=== PATIENT | female | born 1990 | race Caucasian/White ===

== ENCOUNTER → 2017-01-21 | Outpatient (CLI) | payer OTHER ==
[~2017-01-21] MED LIST: PRENTAB26 PO; SPIR50TA2 PO; yaz
[2017-01-21 12:09] LABS: BASO % 0.1 %; BASO ABS # 0.01 K/uL (0-0.2); COMPLETE YES; EOS % 1.9 %; HEMATOCRIT 38.8 % (37-47); IG% 0.3 %; LYMPH % 18.2 %; LYMPH ABS # 1.27 K/uL (1.2-3.4); MEAN CELL VOLUME 87.4 fL (80-100); MEAN CORPUSCULAR HEMOGLOBIN 29.3 pg (25-34); MEAN CORPUSCULAR HGB CONC 33.5 g/dl (32-36); MEAN PLATELET VOLUME 9.8 fL (7.4-10.4); NEUT % 75.5 %; PLATELET COUNT 190 K/uL (130-400); RED BLOOD COUNT 4.44 M/uL (4.2-5.4); WHITE BLOOD COUNT 6.97 K/uL (4.8-10.8)
[2017-01-21 14:12] LABS: URINE APPEARANCE CLEAR (CLEAR); URINE BILIRUBIN NEG (NEG); URINE COLOR YELLOW; URINE NITRITE NEG (NEG); URINE PH 6.5 (4.5-7.5); URINE SPECIFIC GRAVITY 1.013 (1.000-1.030); UROBILINOGEN NEG (NEG)
[2017-01-21 14:13] LABS: MANUAL MICROSCOPIC REQUIRED? NO; REVIEW REQ? NO
[2017-01-24 01:11] LABS: CHLAMYDIA TRACH RNA*** NOT DETECTED (NOT DETECTED); GC (NEIS GONORRHOEAE)RNA** NOT DETECTED (NOT DETECTED)
== END | disposition home or self-care (01) ==
LOC: C.LAB1850 11:21
PROVIDERS: ATTEND Obstetrics & Gynecology
DX: Z34.00 Encounter for supervision of normal first pregnancy, unspecified trimester (principal)

== ENCOUNTER → 2017-01-21 | Outpatient (CLI) | payer OTHER | END | disposition home or self-care (01) | LOC: C.PAPS 13:46 | PROVIDERS: ATTEND Obstetrics & Gynecology | DX: Z34.00 Encounter for supervision of normal first pregnancy, unspecified trimester (principal) ==

== ENCOUNTER → 2017-02-11 | Outpatient (CLI) | payer OTHER ==
[2017-02-11 18:16] LABS: GTGD 50 Grams
[2017-02-13 14:55] LABS: AFP CONCENTRATION 42.2 NG/ML; AFP MULTIPLE OF MEDIAN 0.84; AFPTS GESTATIONAL AGE 17.6 WEEKS; AFPTS INSULIN DEP DIABETIC? NO; AFPTS MATERNAL WT 110 LBS; ALPHA-FETOPROTEIN RACE CAUCASIAN=W; HISTORY OF NTD NO; REPEAT SAMPLE? NO
== END | disposition home or self-care (01) ==
LOC: C.LAB1850 12:47
PROVIDERS: ATTEND Obstetrics & Gynecology
DX: Z34.00 Encounter for supervision of normal first pregnancy, unspecified trimester (principal)

== ENCOUNTER → 2017-04-29 | Outpatient (CLI) | payer OTHER ==
[~2017-04-29] MED LIST changes: -PRENTAB26 PO
[2017-04-29 12:18] LABS: HEMATOCRIT 34.7 % (37-47)
[2017-04-29 12:30] LABS: GTGD 50 Grams
[2017-04-29 15:02] LABS: URINE APPEARANCE CLEAR (CLEAR); URINE BILIRUBIN NEG (NEG); URINE COLOR YELLOW; URINE EPITHELIAL CELL AUTO >30 /lpf (0-5); URINE NITRITE NEG (NEG); URINE SPECIFIC GRAVITY 1.015 (1.000-1.030); UROBILINOGEN NEG (NEG)
[2017-04-29 15:11] LABS: MANUAL MICROSCOPIC REQUIRED? NO; REVIEW REQ? NO
== END ==
LOC: C.LAB1850 11:02
PROVIDERS: ATTEND Obstetrics & Gynecology
DX: Z34.03 Encounter for supervision of normal first pregnancy, third trimester (principal)

== ENCOUNTER 2017-07-14 10:48 | Outpatient (CLI) | payer OTHER | END 2017-07-14 11:40 | disposition home or self-care (01) | LOC: C.OPB 10:48 → C.LD 10:48 → C.OPB 11:40 → EDSTATUS 07-18 10:51 | PROVIDERS: ATTEND Obstetrics & Gynecology | DX: O62.9 Abnormality of forces of labor, unspecified (principal); Z3A.39 39 weeks gestation of pregnancy ==

== ENCOUNTER 2017-07-16 16:58 | Inpatient (IN) | payer OTHER ==
[~2017-07-16] VITALS: Ht 160 cm; Wt 62.5 kg
[2017-07-16 17:46] VITALS: Ht 160 cm; Wt 62.5 kg
[2017-07-16] MEDS ORDERED: PRENTAB26 PO ×2 (17:50)
[2017-07-16] MEDS ORDERED: NURSING VERBAL MED ORDER ONE ×2 (19:00→22:15)
[2017-07-16] MEDS ORDERED: LACTATED RINGER'S 1000ML 1,000 ML IV ONE (19:30)
[2017-07-16] MEDS ORDERED: MEPERIDINE HCL 50 MG/ML CARP IV PRN (21:30)
[2017-07-16] MEDS ORDERED: PROMETHAZINE HCL INJ 25 MG in SODIUM CHLORIDE 0.9% 50ML 50 ML IV PRN (21:30)
[2017-07-16] MEDS ORDERED: LACTATED RINGER'S 1000ML 1,000 ML IV SCH ×2 (22:15→23:20)
[2017-07-16] MEDS ORDERED: EpHEDrine SULFATE INJ 50 MG/ML AMP ONE (23:20)
[2017-07-16] MEDS ORDERED: LACTATED RINGER'S 1000ML 1,000 ML IV PRN (23:20)
[2017-07-16] MEDS ORDERED: FENTANYL 2MCG/ML ROPIV 1.25MG/ML 100ML BAG EPI ONE (23:20)
[2017-07-16] MEDS ORDERED: BUPIVACAINE 0.25% 30 ML VIAL ONE (23:20)
[2017-07-16] MEDS ORDERED: FENTANYL CITRATE INJ 50 MCG/1 ML 2 ML VIAL ONE (23:20)
[2017-07-16 23:43] LABS: HEMATOCRIT 38.1 % (37-47); MEAN CELL VOLUME 88.8 fL (80-100); MEAN CORPUSCULAR HEMOGLOBIN 31.5 pg (25-34); MEAN CORPUSCULAR HGB CONC 35.4 g/dl (32-36); MEAN PLATELET VOLUME 10.1 fL (7.4-10.4); PLATELET COUNT 173 K/uL (130-400); RED BLOOD COUNT 4.29 M/uL (4.2-5.4); WHITE BLOOD COUNT 10.94 K/uL (4.8-10.8)
[2017-07-17] MEDS ORDERED: NALOXONE HCL INJ 1 MG in SODIUM CHLORIDE 0.9% 1000ML 1,000 ML IV PRN (00:36)
[2017-07-17] MEDS ORDERED: LACTATED RINGER'S 1000ML 500 ML IV PRN (00:36)
[2017-07-17] MEDS ORDERED: EpHEDrine SULFATE INJ 50 MG/ML AMP IV PRN (00:45)
[2017-07-17] MEDS ORDERED: FENTANYL 2MCG/ML ROPIV 1.25MG/ML 100ML BAG EPI PRN (00:45)
[2017-07-17] MEDS ORDERED: NALBUPHINE HCL INJ 10 MG/ML AMP IV PRN (00:45)
[2017-07-17] MEDS ORDERED: NALOXONE HCL INJ 0.4 MG/1 ML VIAL/CARP IV PRN (00:45)
[2017-07-17] MEDS ORDERED: DiphenhydrAMINE HCL 50 MG/ML VIAL IV PRN (00:45)
[2017-07-17] MEDS ORDERED: OXYTOCIN 30 UNITS/500ML NSS IV ONE (05:24)
--- NOTE | 2017-07-17 07:40 | Anesthesia Procedure Note ---
Anesthesia Epidural Removal Nt Date & Time Jul 17, 2017 at 07:40 Vital Signs Pain Intensity: 3.0 Notes Mental Status: alert / awake / arousable, participated in evaluation Nausea / Vomiting: adequately controlled Pain: adequately controlled Airway Patency, RR, SpO2: stable & adequate BP & HR: stable & adequate Hydration State: stable & adequate Neuraxial Anesthesia: was administered Anesthetic Complications: no major complications apparent, pt satisfied with anesthetic care Epidural: removed without complications, with tip intact
[2017-07-17] MEDS ORDERED: IBUPROFEN 600 MG TAB PO PRN (07:45)
[2017-07-17] MEDS ORDERED: OXYTOCIN 30 UNITS/500ML NSS IV PRN (07:45)
[2017-07-17] MEDS ORDERED: OXYCODONE/ACETAMINOPHEN 5-325 TAB PO PRN (07:45)
[2017-07-17] MEDS ORDERED: HYDROCORTISONE ACETATE 25 MG SUPP PR PRN (07:45)
[2017-07-17] MEDS ORDERED: LANOLIN OINT EXT PRN ×2 (07:45)
[2017-07-17] MEDS ORDERED: DIPHTHERIA/TETANUS/PERTUSSIS 0.5 ML SYR/VIAL IM. ONE (07:45)
[2017-07-17] MEDS ORDERED: ACETAMINOPHEN/CODEINE 300/30MG TAB PO PRN ×2 (07:45)
[2017-07-17] MEDS ORDERED: ACETAMINOPHEN 325 MG TAB PO PRN (07:45)
[2017-07-17] MEDS ORDERED: SUPERCREAM 0.870 % 15GM JAR EXT PRN (07:45)
--- NOTE | 2017-07-17 07:47 | DELIVERY SUMMARY ---
DATE OF OPERATION: 07/16/2017 Helga presented to labor and delivery in active labor. She delivered after receiving an epidural. It should be noted a few heart rate was category 1 tracing, however there was a mild arrhythmia noted during the last stage of pushing. Although, I think heart rate tracing was category 1. She delivered a baby over left occiput anterior position, fluid was clear. Mouth and then nares were then suctioned. There was a loose nuchal cord which was easily passed over the head. The baby was delivered by gentle traction. No excessive force was used. Live vigorous male infant. Cord, clamped and cut. Cord gas was obtained. Cord blood obtained. Placenta removed with gentle traction. There was no tearing. Estimated blood loss 100 mL. Sponge, needle and instrument counts were correct. I attest to the content of the Intraoperative Record and any orders documented therein. Any exception s are noted below.
[2017-07-17] MEDS: PRENATAL VITAMIN TAB PO SCH (08:00)
[2017-07-17] MEDS: DOCUSATE SODIUM 100 MG CAP PO SCH ×2 (08:00→20:01)
[2017-07-17 09:20] VITALS: BP 113/73; PULSE 111; TEMP 36.8
[2017-07-17 13:06] VITALS: BP 129/77; PULSE 88; TEMP 36.3
[2017-07-17 16:00] VITALS: BP 127/79; PULSE 79; TEMP 36.8
[2017-07-17 20:00] VITALS: BP 126/77; PULSE 87; TEMP 36.8
[2017-07-17] MEDS: BENZOCAINE 20% AER SPR 82.5 GM CAN EXT PRN (23:30)
[2017-07-18 00:30] VITALS: BP 132/84; PULSE 86; TEMP 36.8; O2SAT 99
[2017-07-18] MEDS: BENZOCAINE 20% AER SPR 82.5 GM CAN EXT PRN (01:00)
[2017-07-18 04:20] VITALS: BP 113/74; PULSE 75; TEMP 36.4; O2SAT 98
[2017-07-18 07:03] LABS: HEMATOCRIT 35.7 % (37-47)
--- NOTE | 2017-07-18 07:34 | Progress Note ---
Subjective Jul 18, 2017. Subjective conversation w/ patient, physical exam, chart review, lab review Ambulation: ambulating normally Voiding: no voiding problems Passing Gas: Yes Diet Tolerance: Regular Diet Lochia: Moderate Feeding Type: Breast Feeding Pain: controlled Review of Systems Respiratory: No shortness of breath Cardiac: No chest pain Abdomen: No nausea, No vomiting Female : No dysuria Objective Vital Signs Date Time Temp Pulse Resp B/P (MAP) Pulse Ox O2 Delivery O2 Flow Rate FiO2 07/18/17 04:20 36.4 75 16 113/74 (87) 98 Room Air 07/18/17 00:30 36.8 86 16 132/84 (100) 99 Room Air 07/18/17 00:30 Room Air 07/17/17 20:00 36.8 87 18 126/77 (93) Room Air 07/17/17 16:00 36.8 79 18 127/79 (95) Room Air 07/17/17 16:00 Room Air 07/17/17 13:06 36.3 88 18 129/77 (94) Room Air 07/17/17 09:20 36.8 111 20 113/73 Physical Exam General Appearance: WELL-APPEARING, WD/WN, NO APPARENT DISTRESS Respiratory/Chest: lungs clear, normal breath sounds, no respiratory distress Cardiovascular: regular rate, rhythm Abdomen: normal bowel sounds, soft Fundus: Firm, Tender (appropriately tender), Relation to Umbilicus (at level of U) Extremities: non-tender, normal inspection Laboratory Results Last 24 Hours Test 07/18/17 06:47 Hemoglobin 11.8 g/dL Hematocrit 35.7 % Assessment and Plan Post- Day#: 1 Continue Routine Care: Vital signs reviewed and wnl. Hgb reviewed 13.5 on admission, (11.8 today). Stable. Blood type B +, GBS -, RI. Pt doing well clinically. Encourage ambulation, . Resume regular diet. Control pain with motrin/tylenol. Monitor lochia. Continue routine post care. Pt desires discharge, counselled on discharge instructions with Dr. Roland. Anticipate discharge today. NANCY RHODES FMR PGY 1. Resident Physician Supervision Note: I interviewed and examined the patient. Discussed with Dr. Rhodes and agree with findings and plan as documented in the note. Any exceptions or clarifications are listed here: Patient desires d/c. instructions given, f/u in 6 weeks Documented By: Luke Roland Resident Tracking Resident Involvement: Resident Care Provided Care Provided: OB Delivery
--- NOTE | 2017-07-18 07:35 | Discharge Instructions ---
Discharge Instructions Date of Service Jul 18, 2017. Admission Reason for Admission: Check Labor Discharge Discharge Diagnosis / Problem: Spontaneous Vaginal Delivery Discharge Goals Goal(s): Routine recovery after delivery Medications Continue Dispensed Medications: supercream, dermaplast, tucks, lansinoh Activity Recommendations Activity Limitations: per Instructions/Follow-up section . Instructions / Follow-Up Instructions / Follow-Up ACTIVITY RECOMMENDATIONS: * Gradual return to full activity over the next 2-3 weeks. * No lifting - nothing heavier than baby over the next 2-3 weeks. * Do not engage in vigorous exercise, sexual activity or sports until cleared by your physician. * Do not drive or operate any motorized equipment until cleared by your physician. * You may shower/bathe daily. MEDICATIONS: For discomfort or pain, you may use Acetaminophen (Tylenol), Ibuprofen (Advil), or Naproxen (Aleve) following the package directions. For constipation you may use Colace following the package directions. BREAST CARE: If you are not breast feeding: * Wear a supportive bra 24 hours a day for one to two weeks. * Avoid stimulating your breasts and nipples as much as possible during the first few weeks after delivery. * When taking a shower, have the warm water hit your back, not breasts. * When your breasts feel full, apply ice packs. Usually three to four times a day helps ease the discomfort. * Take a mild pain medication (Tylenol / Motrin) when you are uncomfortable. If breast feeding: * Use breast milk to lubricate nipples. Lansinoh cream may be used for sore nipples. You do not need to remove cream prior to breast feeding. If using a different brand of cream, check the label for directions regarding removal of cream prior to nursing. * Wear a supportive bra. * If having problems with breasts or breast feeding, call a farm consultant or your health care provider. EPISIOTOMY CARE: After delivery, if you have an episiotomy (stitches), the following steps will ease discomfort and aid healing. * For the first 24 hours after delivery, place ice packs next to your episiotomy to help reduce swelling. * After the first 24 hour-period, sitz baths, either portable or in the tub, are suggested. A shower with a shower arm sprayed over the episiotomy may be comforting. * Hanny care should be done after each voiding and bowel movement. Squirt warm water from a plastic bottle over the perineum (region of the body between the anus and urinary opening) and pat dry. * Use Dermoplast to ease discomfort. Shake container. [place] directly over the episiotomy. Place a Tucks on a clean sanitary pad next to your episiotomy. SPECIAL CARE INSTRUCTIONS: When you are discharged from the hospital, it is important for you to follow the instructions listed below: * During the first week at home, you should be able to care for yourself and your baby. In addition, the usual light household activities are encouraged. * Limit your activities to the way you feel. Do not try to clean the house or move furniture. Be sensible. * If you actively engage in sports and have done so up until the time of your delivery, you may resume these activities as soon as you feel able. This may take up to one month or even longer. Use good judgment. * Continue to take your vitamins for at least six weeks after the of your baby. * Your diet need not be limited unless you were on a special diet before your delivery. Breast-feeding mothers need around 2500 calories per day and at least 64-80 ounces of fluid per day (8 to 10 glasses). * You should eat foods from the four major food groups. Crash diets or fad diets are to be avoided. Eating lean meats, fresh fruits and vegetables, low-fat dairy products, high fiber foods and a regular exercise program, will help you get back to your pre- weight without putting your health at risk. * Constipation is sometimes a problem after delivery. Take a mild laxative as needed. If breast feeding, Milk of Magnesia is acceptable to use. You may use a suppository or Fleets enema if no episiotomy. * A daily shower or tub bath is suggested. Be sure to thoroughly and gently dry the perineum. * A bloody vaginal discharge will usually continue until around four weeks post . A small amount of bleeding may continue for as long as six weeks. Vaginal discharge changes from the bright red bleeding after delivery to pink then brownish and finally yellowish-pink before becoming white and disappearing. * Bleeding may increase with activity. Your first period may come in 4-8 weeks. If you are breast feeding, your period may be delayed even longer. * [place] (sex) can begin whenever both you and your partner feel comfortable and do not have any form of genital infection. It is recommended that you wait at least six weeks for internal and external healing to occur. If you have questions, please talk to your health care practitioner. A condom should be used to prevent infection and . * Foreplay, gentle intercourse and lubrication is very important the first several times to prevent pain. A water-based lubricant such as K-Y jelly or Astroglide may be used. * If you have RH negative blood and your baby is RH positive, you will receive RHOGAM by injection prior to discharge. The nurse will give you a card to keep with you that has the date and place that you received RHOGAM after delivery. * During your care, you had a Rubella screen done to check for the presence of rubella antibodies in your blood. If your test was negative, you will receive a Rubella vaccine prior to discharge. This vaccine may cause a fever, soreness at the injection site and flu-like symptoms. If these symptoms persist, notify your health care practitioner. is not advised for one month after a Rubella vaccine. * Verbalizes understanding of car seat law as reviewed with patient nursing. * Car Seat hand-out given and reviewed with patient by nursing. * Shaken baby information reviewed with patient by nursing. Call you doctor if: * Heavy bleeding (saturating several pads an hour) or passing clots the size of your fist. * A fever >101 degrees F (38.3 degrees C) on two occasions four hours apart and /or chills. * Unusual pain in the pelvic or vaginal areas. * "Baby Blues" lasting longer than two weeks. If you have any questions or concerns, call your health care practitioner at . FOLLOW UP VISIT: * Please call the office at to schedule a 6 week examination. It is important you keep this appointment. It is important for you to make arrangements for either yearly or twice yearly check-ups thereafter. Current Hospital Diet Patient's current hospital diet: Regular OB Diet Discharge Diet Recommended Diet: Regular Diet Pending Studies Studies pending at discharge: no Medical Emergencies . Who to Call and When: Medical Emergencies: If at any time you feel your situation is an emergency, please call 911 immediately. . Non-Emergent Contact Non-Emergency issues call your: Primary Care Provider . . "Provider Documentation" section prepared by Linda Rhodes. . VTE Core Measure Inpt VTE Proph given/why not?: Treatment not indicated
[2017-07-18] MEDS: DOCUSATE SODIUM 100 MG CAP PO SCH (07:55)
[2017-07-18] MEDS: PRENATAL VITAMIN TAB PO SCH (07:55)
[2017-07-18 08:00] VITALS: BP 121/78; PULSE 67; TEMP 36.6
[2017-07-18 12:57] VITALS: BP_DIAS 78; PULSE 67; TEMP 36.6
[2017-07-18] MEDS ORDERED: BISACODYL 5 MG TABEC PO SCH (20:00)
[2017-07-19] MEDS ORDERED: BISACODYL 10 MG SUPP PR PRN (07:00)
== END 2017-07-18 13:34 | disposition home or self-care (01) | DRG 775 ==
LOC: C.LD 16:58 → C.OPB 16:58 → C.LD 23:21 → C.OBG 07-17 09:27
PROVIDERS: ADMIT Obstetrics & Gynecology; ATTEND Obstetrics & Gynecology
PROC: 10E0XZZ Delivery of Products of Conception, External Approach (ICD-10-PCS; principal; 2017-07-16)
DX: O69.81X0 Labor and delivery complicated by cord around neck, without compression, not applicable or unspecified (principal); Z3A.39 39 weeks gestation of pregnancy; Z37.0 Single live birth

== ENCOUNTER → 2017-08-21 | Outpatient (CLI) | payer OTHER ==
[~2017-08-21] MED LIST changes: +PRENTAB26 PO; -SPIR50TA2 PO; -yaz
== END | disposition home or self-care (01) ==
LOC: C.PAPS 15:35
PROVIDERS: ATTEND Obstetrics & Gynecology
DX: D06.9 Carcinoma in situ of cervix, unspecified (principal)

== ENCOUNTER 2019-03-14 03:58 | Inpatient (IN) ==
[2019-03-14] MEDS ORDERED: LACTATED RINGER'S 1,000 ML IV PRN (04:07)
--- NOTE | 2019-03-14 04:13 | Labor Progress Brief Note ---
Date of Service March 14, 2019 Subjective Patient arrives to L&D in wheelchair sitting on one cheek and screaming with contractions. No LOF, no VB, +FM, mucus discharge. Assessment & Plan (1) Normal labor and delivery: Monitoring, expectant management of labor, anticipate . GBS neg. Present on Admission?: Yes Physical Exam Physical Exam: 9/100/+1 Intact bag bulging Corby clinically every 2 min, not on monitor yet at time of exam. FHT AGA
[2019-03-14] MEDS ORDERED: OXYTOCIN 30 UNITS/500ML NSS ONE (04:34)
[2019-03-14 04:46] LABS: Hematocrit (blood only) 37.4 % (37-47); Mean Platelet Volume 10.3 fL (7.4-10.4); Platelet Count 162 K/uL (130-400); RDW Coefficient of Variation 13.6 % (11.5-14.5); RDW Standard Deviation 43.2 fL (36.4-46.3); Red Blood Count 4.25 M/uL (4.2-5.4); White Blood Count 10.81 K/uL (4.8-10.8)
[2019-03-14 04:51] LABS: Mean Corpuscular Hgb Conc 34.8 g/dL (32-36)
--- NOTE | 2019-03-14 05:03 | Delivery Summary ---
Vaginal Delivery Summary Date of Service March 14, 2019 Vaginal Delivery Summary DIAGNOSES: 1. Childress intrauterine at term gestation. 2. Spontaneous onset of labor. 3. Group B Streptococcus Neg. PROCEDURE: Spontaneous vaginal delivery. SURGEON: Anila Gordon MD. PAPER REWINDER: None. ESTIMATED BLOOD LOSS: 200 mL. COMPLICATIONS: None. PLACENTA: Spontaneous and intact with a 3-vessel cord. DISPOSITION: Stable to labor and delivery. DESCRIPTION: The patient is a 28-year-old G2, P1, who presented with Onset of labor at home. She was 9cm on admission and was managed expectantly. She pushed well and brought the head to in OA position. The infant's head was allowed to deliver with contraction force and no further active pushing, with the perineum protected during this time. A nuchal x1 was reduced. The shoulders delivered easily with a maternal pushing effort. The shoulders and body delivered without any difficulty, and the infant was placed on the maternal abdomen. It was vigorous and moving all extremities, and making respiratory efforts. The cord was doubly clamped by the MD and then cut by a recovery coach who was with the patient. The placenta delivered spontaneously and was noted to be intact and with a hypocoiled 3VC. The cervix, vagina and perineum were examined and were found to be without defect requiring repair. The fundus was firm and lochia minimal immediately after delivery.
[2019-03-14] MEDS ORDERED: OXYTOCIN 30 UNITS/500 ML BAG IV PRN (05:12)
[2019-03-14] MEDS ORDERED: OXYCODONE/ACETAMINOPHEN 5mg/325mg TAB PO PRN (05:12)
[2019-03-14] MEDS ORDERED: ACETAMINOPHEN 325 MG TAB PO PRN (05:12)
[2019-03-14] MEDS ORDERED: BENZOCAINE 20% AER SPR 82.5 GM CAN EXT PRN (05:12)
[2019-03-14] MEDS ORDERED: SUPERCREAM 0.870% 15 GM JAR EXT PRN (05:12)
[2019-03-14] MEDS ORDERED: HYDROCORTISONE ACETATE 25 MG SUPP PR PRN (05:12)
[2019-03-14] MEDS: DOCUSATE SODIUM 100 MG CAP PO SCH ×2 (11:28→21:04)
[2019-03-14] MEDS: PRENATAL VITAMIN 1 TAB PO SCH (11:28)
[2019-03-14] MEDS: IBUPROFEN 600 MG TAB PO PRN (13:01)
[2019-03-15] MEDS: IBUPROFEN 600 MG TAB PO PRN (04:15)
--- NOTE | 2019-03-15 05:33 | Obstetrical Progress Note ---
Date of Service <Gaudencio Sultana MD - Last Filed: 03/15/19 06:54> March 15, 2019 Assessment & Plan <Gaudencio Sultana MD - Last Filed: 03/15/19 06:54> Day #:: 1 ([28 y/o s/p vaginal delivery @ 38+2] - GBS negative, Blood Type B pos. - Feels well today. Eating well, voiding well, ambulating well. - Pain well controlled. - Routine care - After discharge will have [address] Gordon.) Subjective <Gaudencio Sultana MD - Last Filed: 03/15/19 06:54> Ambulation: ambulating normally Voiding: no voiding problems Passing Gas:: Yes Diet Tolerance:: regular diet Lochia:: Moderate Feeding Type:: breast feeding Current Pain Level(1-10): 1 Physical Exam <Gaudencio Sultana MD - Last Filed: 03/15/19 06:54> OB PE General: Alert, oriented. No acute distress. Cardiac: Regular rate and rhythm, no murmurs/rubs/gallops. Respiratory: Clear to auscultation anterior and posteriorly, no wheezes/rales/rhonchi. No increased work of breathing. Symmetrical chest rise. No respiratory distress. Abdomen: Soft, nontender, nondistended. Bowel sounds present. Uterus: Uterine fundus firm, palpable 1 cm below umbilicus. Lower Extremities: No lower extremity edema or swelling. No deep calf pain. Jodie's negative bilaterally. OB ROS Denies fever, chills, sweats Denies shortness of breath, difficulty breathing, chest pain, palpitations, c hest pressure. Denies breast pain. Denies dysuria. Denies headache. Results & Data <Gaudencio Sultana MD - Last Filed: 03/15/19 06:54> Vital Signs (Past 12 Hours) Vital Signs Temp Pulse Resp BP 03/15/19 04:10 36.6 C 75 18 97/63 L 03/14/19 23:40 36.9 C 62 18 98/60 L 03/14/19 19:35 36.7 C 118 H 18 113/73 <Luke Roland Jr, MD, FACOG - Last Filed: 03/15/19 07:27> Co-Signing Physician Notes Resident Physician Supervision Note: I was present with Dr. Sultana during the history and exam. I discussed the case with the resident and agree with the findings and plan as documented in the note. Any exceptions or clarifications are listed here: Patient desires early d/c, instructions given Documented By: Luke Roland Jr, MD, FACOG
[2019-03-15 07:02] LABS: Hematocrit (blood only) 32.4 % (37-47); Hemoglobin 10.8 g/dL (12.0-16.0); Mean Corpuscular Hgb Conc 33.3 g/dL (32-36); Mean Corpuscular Volume 91.5 fL (80-100); Mean Platelet Volume 10.2 fL (7.4-10.4); Platelet Count 130 K/uL (130-400); RDW Coefficient of Variation 13.7 % (11.5-14.5); RDW Standard Deviation 45.9 fL (36.4-46.3); Red Blood Count 3.54 M/uL (4.2-5.4); White Blood Count 7.29 K/uL (4.8-10.8)
[2019-03-15] MEDS: DOCUSATE SODIUM 100 MG CAP PO SCH (08:20)
[2019-03-15] MEDS: PRENATAL VITAMIN 1 TAB PO SCH (08:20)
[2019-03-15] MEDS ORDERED: DIPHTHERIA/TETANUS/PERTUSSIS 0.5 ML SYR/VIAL IM ONE (09:00)
== END 2019-03-15 15:30 | disposition home or self-care (01) | DRG 807 ==
LOC: OPB 03:58 → 4S1 04:00 → 4S2 09:39

== ENCOUNTER 2024-06-17 00:35 | Inpatient (IN) ==
[2024-06-17] MEDS ORDERED: LIDOCAINE 1% LOCAL 20 ML VIAL INFIL PRN (01:20)
[2024-06-17] MEDS ORDERED: OXYTOCIN 30 UNITS/NSS 30 UNITS/500 ML BAG IV PRN (01:20)
[2024-06-17] MEDS ORDERED: OXYTOCIN 30 UNITS/500ML NSS IV ONE (01:32)
[2024-06-17 01:49] LABS: Hemoglobin 13.5 g/dl (12.0-16.0); Mean Corpuscular Hgb Conc 34.6 g/dL (32.0-36.0); Mean Corpuscular Volume 89.7 fL (80.0-100.0); Mean Platelet Volume 10.1 fL (9.4-12.4); Platelet Count 186 K/uL (130-400); RDW Coefficient of Variation 12.9 % (11.5-14.5); RDW Standard Deviation 42.4 fL (36.4-46.3); Red Blood Count 4.35 M/uL (4.20-5.40); White Blood Count 10.74 K/ul (4.8-10.8)
[2024-06-17] MEDS: OXYTOCIN 30 UNITS/NSS 30 UNITS/500 ML BAG IV PRN (02:15)
--- NOTE | 2024-06-17 02:19 | Delivery Summary ---
Vaginal Delivery Summary Date of Service June 17, 2024 Vaginal Delivery Summary DIAGNOSES: 1. Childress intrauterine at 39w2d gestation. 2. Spontaneous onset of labor. 3. Group B Streptococcus Neg. PROCEDURE: Spontaneous vaginal delivery without laceration. SURGEON: Anila Gordon MD. EGG PROCESSING SUPERVISOR: None. QUANTITATIVE BLOOD LOSS: 150 mL. COMPLICATIONS: None. PLACENTA: Spontaneous and intact with a 3-vessel cord. DISPOSITION: Stable to labor and delivery. DESCRIPTION: The patient pushed well and brought the head to in OA position. The 's head was allowed to deliver with contraction force and no further active pushing, with the perineum protected during this time. There was one nuchal cord. The left shoulder was anterior. The shoulders and body delivered without any difficulty, and the infant was placed on the maternal abdomen. It was vigorous and moving all extremities, and making respiratory efforts. The cord was doubly clamped by the MD and then cut by the FOB. The placenta delivered spontaneously and was noted to be intact and with a 3VC. The cervix, vagina and perineum were examined and were found to be without defect requiring repair. The fundus was firm and lochia minimal immediately after delivery[place] [facility] [place] Vaginal Delivery Codes: 70430 global code for the antepartum, delivery, and post-
[2024-06-17] MEDS ORDERED: oxyCODONE/ACETAMINOPHEN 5mg/325mg TAB PO PRN (03:47)
[2024-06-17] MEDS ORDERED: ACETAMINOPHEN 325 MG TAB PO PRN (03:47)
[2024-06-17] MEDS ORDERED: bisacodyL 10 MG SUPP PR PRN (03:47)
[2024-06-17] MEDS ORDERED: HYDROCORTISONE ACETATE 25 MG SUPP PR PRN (03:47)
[2024-06-17] MEDS: BENZOCAINE 20% SPRY 85 APPLN/85 GM CAN EXT PRN (05:56)
[2024-06-17] MEDS: PRENATAL VITAMIN 1 TAB PO SCH (08:33)
[2024-06-17] MEDS: DOCUSATE SODIUM 100 MG CAP PO SCH (08:33)
[2024-06-17] MEDS: DIPHTHER/TETAN/PERTUS Vaccine (Tdap, Adol/Adult) 0.5mL IM ONE (20:50)
[2024-06-17] MEDS: IBUPROFEN 600 MG TAB PO PRN (21:11)
[2024-06-17 22:04] VITALS: O2SAT 98
--- NOTE | 2024-06-18 06:09 | Obstetrical Progress Note ---
Date of Service <Attila Stringer - Last Filed: 06/18/24 08:22> June 18, 2024 Assessment & Plan <Attila Stringer - Last Filed: 06/18/24 08:22> (1) state: Patient is a 34yo day 1 s/p uncomplicated . Feels well today, VSS Continue care Ambulation and as tolerated Pain control as needed Hgb: 13.5 -> 12.5, asymptomatic Home: today if possible Follow up with Dr. Gordon in 6wks. <Sarah Ya MD, FACOG - Last Filed: 06/18/24 08:51> (1) state: Subjective <Attila Stringer - Last Filed: 06/18/24 08:22> Patient is a 34yo day 1 s/p uncomplicated . Ambulation: yes Voiding: urinating, no BM yet Passing gas: yes Diet tolerance: yes, OB reg Lochia: decreasing Feeding type: breast, going well Current pain: mild MMR immune, Rh+ no rhogam. Resting comfortably this AM in NAD. Denies fever, chills, headache, vision changes, chest pain, SOB, abdominal pain, LE pain/swelling, or LE numbness/tingling. Review of Systems as above Physical Exam <Attila Stringer - Last Filed: 06/18/24 08:22> General: A&Ox4, resting comfortably in NAD, nontoxic in appearance Skin: warm, dry, no rashes HEENT: NC/AT, anicteric sclerae, conjunctive noninjected, moist mucous membranes Heart: +s1/s2, regular rate and rhythm, no m/r/g Lungs: nonlabored respirations, equal air entry b/l, clear to auscultation b/l Abd: +BS, abdomen soft, fundus firm 1fingerwidth inferior to umbilicus, no tenderness to palpation Ext: moves all extremities Neuro: normal speech, no facial droop Results & Data <Attila Lojaangela - Last Filed: 06/18/24 08:22> Vital Signs (Past 12 Hours) Vital Signs Temp Pulse Resp BP Pulse Ox O2 Del Method 06/18/24 00:45 36.7 C 73 18 118/77 98 Room Air 06/17/24 20:30 36.7 C 86 18 128/80 98 Room Air Supervising Physician <Sarah Ya MD, FACOG - Last Filed: 06/18/24 08:51> Co-Signing Physician Notes Resident Physician Supervision Note: I was present with Dr. Stringer during the history and exam. I discussed the case with the resident and agree with the findings and plan as documented in the note. Any exceptions or clarifications are listed here: doing well, ready for dc. rhpos, ri. abd soft ff 2 down nt. ext nt calves. ppd#1 s/p doing well and wants to go home, instructions reviewed. f/u 6wk pp. breast feeding. Documented By: Sarah Ya MD, FACOG Resident Activity Tracking <Attila Stringer DO - Last Filed: 06/18/24 08:22> Resident Involvement: Resident Care Provided Care Provided: OB Delivery
[2024-06-18 07:53] VITALS: BP 119/70; PULSE 78; RESP 16; TEMP 98.2
[2024-06-18 08:14] LABS: Hematocrit (blood only) 36.3 % (37.0-47.0); Hemoglobin 12.5 g/dl (12.0-16.0); Mean Corpuscular Hemoglobin 31.1 pg (25.0-34.0); Mean Corpuscular Hgb Conc 34.4 g/dL (32.0-36.0); Mean Corpuscular Volume 90.3 fL (80.0-100.0); Mean Platelet Volume 10.5 fL (9.4-12.4); Platelet Count 142 K/uL (130-400); RDW Coefficient of Variation 13.2 % (11.5-14.5); RDW Standard Deviation 43.6 fL (36.4-46.3); Red Blood Count 4.02 M/uL (4.20-5.40); White Blood Count 9.49 K/ul (4.8-10.8)
[2024-06-18] MEDS ORDERED: bisacodyL 5 MG TABEC PO SCH (20:00)
== END 2024-06-18 13:25 | disposition home or self-care (01) | DRG 807 ==
LOC: OPB 00:35 → 4S1 00:37 → 4E1 06:01